=== PATIENT | male | born 1975 | race American Indian/Alaskan Native ===

== ENCOUNTER 2019-01-22 16:15 | Emergency (ER) | payer MEDICAID ==
[2019-01-22 16:54] VITALS: BP 142/88
--- NOTE | 2019-01-22 17:09 | Emergency Department Report ---
Chief Complaint: Medical Clearance Stated Complaint: SEIZURE/MED REFILL Time Seen by Provider: 01/22/19 16:54 - HPI History of Present Illness: This is a 43-year-old male nontoxic, well in appearance with no signs of distress presents to the ED for seizure medication refill. Patient stated he was just discharged on 01/18/2019 from [facility] ED and started on Oxcarbaepine and Zonisamide. Stated did not start medication as he is not sure if that is his medications. Jose follow-up with PCP or neurologist. Denies any new or active seizures. Denies any headache or dizziness. Stated is here today to check which medications are best for SZ and get the refills. Patient stated he is asymptotic. Patient denies any urinary symptoms. Patient denies any fever, chills, headache, nausea, vomiting, chest pain or shortness of breathe. denies any other symptoms or complaints. Denies any allergies or PMH. - Exam Vital Signs: Vital Signs 01/22/19 16:52 Temperature 98.2 F Pulse Rate 91 H Respiratory 20 Rate Blood Pressure 142/88 O2 Sat by Pulse 98 Oximetry Physical Exam: Denies headache. no back pains. no dizziness. No SZ activity. Neuro exam within normal limits. PERRLA. MSE screening note: Focused history and physical exam performed. Due to findings the following was ordered: ED Medical Decision Making - Medical Decision Making 43-year-old male that presents with medication refill. Patient has discharged paper work from [facility] ED which medication prescrptions that he did not fill yet. Patient stated had a full work-up with CT scans that was done. I instructed that patient needs to get medications that was prescribed to him. Patient was instructed to Follow-up with a primary care and neurologist doctor in 2 days or if symptoms worsen and continue return to emergency room as soon as possible. At time of discharge, the patient does not seem toxic or ill in appearance. No acute signs of distress noted. Patient agrees to discharge treatment plan of care. No further questions noted by the patient. ED Disposition for MSE Clinical Impression: Medication refill Disposition: Z- MED SCREENING EXAM-LEFT Is pt being admited?: No Does the pt Need Aspirin: No Condition: Stable Additional Instructions: Take medications as prescribed to you from the previous provider at [facility] ED. Follow-up with a primary care and neurologist doctor in 2 days or if symptoms worsen and continue return to emergency room as soon as possible. Referrals: PRIMARY CAREMD [Primary Care Provider] - 3-5 Days [facility] [Outside] - 3-5 Days TAMARA ESQUIVEL MD [Staff Physician] - 2-3 Days MADY CRAIG MD [Staff Physician] - 2-3 Days
== END 2019-01-22 17:45 | disposition left against medical advice (07) ==
LOC: ED 16:15
DX: R56.9 Unspecified convulsions (principal); Z76.0 Encounter for issue of repeat prescription
CPT/HCPCS: 99282

== ENCOUNTER 2019-01-23 10:04 | Emergency (ER) | payer MEDICAID ==
[2019-01-23] MEDS ORDERED: levETIRAcetam 500 MG/5 ML ORAL LIQD PO ONE (10:30)
[2019-01-23] MEDS ORDERED: LORazepam 2 MG/ML VIAL IV ONE (10:30)
--- NOTE | 2019-01-23 10:33 | Emergency Department Report ---
ED General Adult HPI - General Chief complaint: Seizure Stated complaint: SEZUIRE Time Seen by Provider: 01/23/19 10:26 Source: patient Mode of arrival: Wheelchair Limitations: Altered Mental Status - History of Present Illness Initial comments: The patient presents to the emergency department for chief complaint of a seizure. The patient states that he has a history of epilepsy and has not taken his medications for the last couple of days. Patient states he feels like he is back to his baseline and is no longer postictal. -: Sudden Radiation: non-radiation Severity scale (0 -10): 0 Consistency: now resolved Improves with: none Worsens with: none Associated Symptoms: denies other symptoms Treatments Prior to Arrival: none - Related Data Previous Rx's Medication Instructions Recorded Last Taken Type levETIRAcetam [Keppra TAB] 750 mg PO BID #30 tablet 01/23/19 Unknown Rx Allergies Allergy/AdvReac Type Severity Reaction Status Date / Time No Known Allergies Allergy Unverified 01/22/19 16:28 ED Review of Systems ROS: Stated complaint: SEZUIRE Other details as noted in HPI Comment: All other systems reviewed and negative Constitutional: denies: chills, fever Eyes: denies: eye pain, eye discharge, vision change ENT: denies: ear pain, throat pain Respiratory: denies: cough, shortness of breath, wheezing Cardiovascular: denies: chest pain, palpitations Endocrine: no symptoms reported Gastrointestinal: denies: abdominal pain, nausea, diarrhea Genitourinary: denies: urgency, dysuria Musculoskeletal: denies: back pain, joint swelling, arthralgia Skin: denies: rash, lesions Neurological: denies: headache, weakness, paresthesias Psychiatric: denies: anxiety, depression Hematological/Lymphatic: denies: easy bleeding, easy bruising ED Past Medical Hx - Past Medical History Previous Medical History?: Yes Hx Seizures: Yes Additional medical history: Sleep apnea - Surgical History Past Surgical History?: No - Social History Smoking Status: Unknown if ever smoked - Medications Home Medications: Home Medications Medication Instructions Recorded Confirmed Last Taken Type levETIRAcetam [Keppra TAB] 750 mg PO BID #30 tablet 01/23/19 Unknown Rx ED Physical Exam - General Limitations: Altered Mental Status General appearance: alert, in no apparent distress - Head Head exam: Present: atraumatic, normocephalic - Eye Eye exam: Present: normal appearance, PERRL, EOMI - ENT ENT exam: Present: mucous membranes moist - Neck Neck exam: Present: normal inspection - Respiratory Respiratory exam: Present: normal lung sounds bilaterally. Absent: respiratory distress - Cardiovascular Cardiovascular Exam: Present: regular rate, normal rhythm. Absent: systolic murmur, diastolic murmur, rubs, gallop - GI/Abdominal GI/Abdominal exam: Present: soft, normal bowel sounds - Rectal Rectal exam: Present: deferred - Extremities Exam Extremities exam: Present: normal inspection - Back Exam Back exam: Present: normal inspection - Neurological Exam Neurological exam: Present: alert, oriented X3, CN II-XII intact. Absent: motor sensory deficit - Psychiatric Psychiatric exam: Present: normal affect, normal mood - Skin Skin exam: Present: warm, dry, intact, normal color. Absent: rash ED Course Vital Signs 01/23/19 01/23/19 01/23/19 10:10 10:16 10:30 Temperature 98.3 F Pulse Rate 96 H 98 H 106 H Respiratory 19 23 23 Rate Blood Pressure 120/71 120/71 118/76 O2 Sat by Pulse 94 96 96 Oximetry 01/23/19 01/23/19 01/23/19 10:34 10:45 11:00 Temperature Pulse Rate 96 H 97 H Respiratory 23 10 L 15 Rate Blood Pressure 107/65 120/84 O2 Sat by Pulse 94 97 95 Oximetry 01/23/19 11:15 Temperature Pulse Rate Respiratory Rate Blood Pressure 120/84 O2 Sat by Pulse 94 Oximetry Critical care attestation.: If time is entered above; I have spent that time in minutes in the direct care of this critically ill patient, excluding procedure time. ED Disposition Clinical Impression: Seizure Disposition: DC-01 TO HOME OR SELFCARE Is pt being admited?: No Does the pt Need Aspirin: No Condition: Stable Instructions: Recurrent Seizures Adult (ED) Additional Instructions: return if worse Prescriptions: levETIRAcetam [Keppra TAB] 750 mg PO BID #30 tablet Referrals: RAGHAVENDRA SANTIAGO MD [Primary Care Provider] - 3-5 Days [facility] [Provider Group] - 3-5 Days [facility] [Provider Group] - 3-5 Days ROSALBA MARTELL MD [Staff Physician] - 3-5 Days Time of Disposition: 11:51
[2019-01-23 14:12] VITALS: BP 114/86
== END 2019-01-23 14:00 | disposition home or self-care (01) ==
LOC: ED 10:04
DX: G40.909 Epilepsy, unspecified, not intractable, without status epilepticus (principal); Z79.899 Other long term (current) drug therapy
CPT/HCPCS: 82962; 96374; 99284; J2060